=== PATIENT | female | born 1990 | race Caucasian/White ===

== ENCOUNTER 2017-05-26 18:22 | Emergency (ER) | payer OTHER ==
[~2017-05-26] VITALS: Ht 162.6 cm; Wt 68.0 kg
[2017-05-26 18:33] VITALS: BP 139/77; PULSE 93; RESP 16; TEMP 98.7; O2SAT 99
--- NOTE | 2017-05-26 19:42 | PD ---
HPI Chief Complaint: Skin Problem Time Seen by Provider: 19:42 Travel History International Travel<30 days: No Contact w/Intl Traveler<30days: No Traveled to known affect area: No History of Present Illness HPI 26-year-old female presents the emergency Department with a tender sore area in the upper central buttock area over the past 3 days. She denies have specific swelling or drainage. No history of MRSA in the past. She has no fever, chills, or other symptoms. Pain is currently 7 out of 10. Patient has no known drug allergies. PFSH Social History Alcohol Use: Yes Tobacco Use: No Substance Use: No Allergies-Medications (Allergen,Severity, Reaction): Coded Allergies: No Known Allergies (Unverified , 05/26/17) Reported Meds & Prescriptions Reported Meds & Active Scripts Active Cephalexin 500 Mg Cap 500 Mg PO Q8H Bactroban Topical (Mupirocin) 22 Gm Cream 1 Applic TOPICAL BID Bactrim DS (Sulfamethoxazole-Trimethoprim) 800-160 Mg Tab 1 Tab PO BID Review of Systems Except as stated in HPI: all other systems reviewed are Neg General / Constitutional: No: Fever Eyes: No: Visual changes HENT: No: Headaches Cardiovascular: No: Chest Pain or Discomfort Respiratory: No: Shortness of Breath Gastrointestinal: No: Abdominal Pain Genitourinary: No: Dysuria Musculoskeletal: No: Pain Skin: No Rash Neurologic: No: Weakness Psychiatric: No: Depression Endocrine: No: Polydipsia Hematologic/Lymphatic: No: Easy Bruising Physical Exam Narrative GENERAL: Patient appears no acute distress. SKIN: Warm and dry. Normal color. Normal turgor. Patient has a small area of erythema at the base of the sacrum without significant swelling or obvious abscess. There is no pointing or drainage. HEAD: Atraumatic. Normocephalic. EYES: Pupils equal and round. No scleral icterus. No injection or drainage. ENT: No nasal bleeding or discharge. Mucous membranes pink and moist. Pharynx is clear. Airway is patent. NECK: Trachea midline. Supple nontender. CARDIOVASCULAR: Regular rate and rhythm. RESPIRATORY: No accessory muscle use. Clear to auscultation. Breath sounds equal bilaterally. MUSCULOSKELETAL: Extremities without clubbing, cyanosis, or edema. No obvious deformities. NEUROLOGICAL: Awake and alert. No obvious cranial nerve deficits. Motor grossly within normal limits. Five out of 5 muscle strength in the arms and legs. Normal speech. PSYCHIATRIC: Appropriate mood and affect; insight and judgment normal. Data Data Last Documented VS Vital Signs Date Time Temp Pulse Resp B/P Pulse Ox O2 Delivery O2 Flow Rate FiO2 05/26/17 18:33 98.7 93 16 139/77 99 MDM Medical Decision Making Medical Screen Exam Complete: Yes Emergency Medical Condition: Yes Differential Diagnosis Cellulitis. Early abscess. Possible MRSA. Narrative Course No drainable abscesses appreciated today. Patient is treated with Keflex 500 mg 3 times a day 7 days. Patient is also given Bactrim DS twice a day 7 days. Patient is also given Bactroban ointment twice daily as needed for the next week. Patient is to use warm compresses ibuprofen and Tylenol as needed. Work note is given for the next 2 days. Patient follow up if symptoms are not improving or worsening as discussed. Diagnosis Primary Impression: Cellulitis of buttock Referrals: [facility] Patient Instructions: Cellulitis (ED), General Instructions, MRSA (Methicillin Resistant Staphylococcus Aureus) (ED) Departure Forms: Work Release Enter return to work date: May 28, 2017 Additional Instructions: No drainable abscesses appreciated today. Patient is treated with Keflex 500 mg 3 times a day 7 days. Patient is also given Bactrim DS twice a day 7 days. Patient is also given Bactroban ointment twice daily as needed for the next week. Patient is to use warm compresses ibuprofen and Tylenol as needed. Work note is given for the next 2 days. Patient follow up if symptoms are not improving or worsening as discussed. Med/Other Pt SpecificInfo: Prescription(s) given Scripts Cephalexin 500 Mg Vri248 Mg PO Q8H #21 CAP Prov:Ninfa Alan MD 05/26/17 Mupirocin Topical (Bactroban Topical)22 Gm Cream1 Applic TOPICAL BID #1 TUBE Prov:Ninfa Alan MD 05/26/17 Sulfamethoxazole-Trimethoprim (Bactrim DS)800-160 Mg Tab1 Tab PO BID #14 TAB Prov:Ninfa Alan MD 05/26/17 Disposition: 01 DISCHARGE HOME Condition: Stable Sha Bourgeois May 26, 2017 19:42
[2017-05-26] MEDS ORDERED: MUPI2%T TOPICAL (19:56)
[2017-05-26] MEDS ORDERED: CEPH500C PO (19:56)
[2017-05-26] MEDS ORDERED: BACT800T5 PO (19:56)
== END 2017-05-26 20:14 | disposition home or self-care (01) ==
LOC: PHED 18:22 → PHEFT 20:14
DX: L03.317 Cellulitis of buttock (principal)
CPT/HCPCS: 99284